=== PATIENT | male | born 1950 | race Caucasian/White ===

== ENCOUNTER 2016-07-24 14:25 | Emergency (ER) | payer MEDICARE, OTHER ==
[~2016-07-24] VITALS: Ht 172.7 cm; Wt 86.4 kg
[~2016-07-24 14:25] MED LIST: ASPI325T6 PO; ASPIRIN 32325 MG/TAB PO; ASPIRIN 81M81 MG/TA2 PO; ASPIRIN E.C. 8181 MG PO; CORDARONE200 MG/TAB PO; COREG 3.123.125 MG/T PO; COREG 6.256.25 MG/TA PO; COUMADIN 22.5 MG/TAB PO; COUMADIN 3MG3 MG/TAB PO; DULCOLAX10 MG RC; ERYTHROMYCIN250 M2 PO; FOLIC ACID 11 MG/TA1 PO; HUMALOG100 U/ML SC; IMODIUM 2MG CAPS2 MG PO; LEVAQUIN 5500 MG/TA1 PO; LIPITOR20 MG PO; LOPRESSOR 225 MG/TAB PO; MILK OF MAGNESI30 ML PO; MYLANTA 150 ML150 M1 PO; NEPHROCAP PO; NITROSTAT0.4 MG/TAB SL; NO HOME MEDICATIONS; NORVASC 5MG5 MG/TAB PO; PHOS LO PO; PHOSLO667 MG PO; PLAVIX 75MG TAB75 MG PO; PRILOSEC 20MG20 MG PO; PRINIVIL2.5 MG PO; PROTONIX 40MG T40 MG PO; REGLAN 5MG T5 MG/TAB PO; SANTYL OINT15 GM TP; TAZTIA PO; TIAZAC360 MG PO; TYLENOL 325MG325 MG PO; VITAMIN C500 MG PO; ZANTAC 150MG T150 MG PO; ZESTRIL 5MG5 MG PO; ZESTRIL2.5 MG PO; ZOLOFT 50MG50 MG PO
[2016-07-24 14:26] VITALS: TEMP 97.7
[2016-07-24 16:26] VITALS: BP 149/56; PULSE 65
== END 2016-07-24 16:38 | disposition home or self-care (01) ==
LOC: COL.ER 14:25
DX: S20.212A Contusion of left front wall of thorax, initial encounter (principal); S09.90XA Unspecified injury of head, initial encounter; W01.198A Fall on same level from slipping, tripping and stumbling with subsequent striking against other object, initial encounter; Y92.481 Parking lot as the place of occurrence of the external cause; E11.22 Type 2 diabetes mellitus with diabetic chronic kidney disease; N18.6 End stage renal disease; Z99.2 Dependence on renal dialysis

== ENCOUNTER 2016-07-28 02:12 | Inpatient (IN) | payer MEDICARE ==
[~2016-07-28] VITALS: Ht 172.7 cm; Wt 87.2 kg
[2016-07-28 02:44] LABS: BASO # 0.1 (0.0-0.2); BASO % 0.9 % (0.0-2.0); EOS # 0.1 (0.0-0.7); EOS % 0.9 % (0-4.0); GRAN # 3.4 (1.4-6.5); HEMATOCRIT 37.1 % (42.0-52.0); LYMPH # 3.7 (1.2-3.4); LYMPH % 45.8 % (20.0-51.0); MEAN CELL VOLUME 88 fl (80.0-100.0); MEAN CORPUSCULAR HEMOGLOBIN 27 pg (27.0-31.0); MEAN CORPUSCULAR HGB CONC 31 g/dl (33.0-37.0); MEAN PLATELET VOLUME 11.1 fl (7.4-10.4); MONO # 0.8 (0.1-0.6); MONO % 10.2 % (1.7-9.3); PLATELET COUNT 126 K/mm3 (130-400); RED BLOOD COUNT 4.22 M/mm3 (4.20-5.60); REDCELL DISTRIBUTION WIDTH-CV 14.6 % (11.5-14.5)
[2016-07-28 02:47] LABS: HEMOGLOBIN 11.4 g/dl (13.5-18.0)
[2016-07-28 02:56] LABS: ADJUSTED CALCIUM 8.8 mg/dL (8.4-10.2); ALBUMIN 3.9 gm/dL (3.5-5.0); BILIRUBIN,TOTAL 0.9 mg/dL (0.0-1.0); CALCIUM 8.7 mg/dL (8.4-10.2); MAGNESIUM 2.1 mg/dL (1.6-2.3); POTASSIUM 5.5 mmol/L (3.4-5.0)
[2016-07-28 02:59] LABS: PHOSPHOROUS 9.6 mg/dL (2.5-4.5)
[2016-07-28 03:01] LABS: CREATININE, serum 9.57 mg/dL (0.66-1.25)
[2016-07-28 03:08] LABS: TROPONIN-I 0.394 ng/mL (0.000-0.034)
[2016-07-28 04:32] VITALS: BP 134/52; PULSE 85; TEMP 97.9
[2016-07-28 07:59] VITALS: BP 113/47; PULSE 72; TEMP 98.7
[2016-07-28 12:45] VITALS: BP 133/62; PULSE 75; TEMP 98.4
[2016-07-28 16:37] VITALS: BP 122/67; PULSE 75; TEMP 97.3
[2016-07-28 19:28] VITALS: BP 117/54; PULSE 66; TEMP 97.4
[2016-07-29] VITALS (7 sets, daily range): BP systolic 98–117; BP diastolic 40–58; PULSE 64–103; TEMP 97.2–98.8
[2016-07-29 07:30] LABS: BASO # 0.1 (0.0-0.2); BASO % 1.2 % (0.0-2.0); EOS % 0.4 % (0-4.0); GRAN # 3.7 (1.4-6.5); GRAN % 54.4 % (42.2-75.2); HEMATOCRIT 38.1 % (42.0-52.0); LYMPH # 2.3 (1.2-3.4); LYMPH % 33.1 % (20.0-51.0); MEAN CELL VOLUME 90 fl (80.0-100.0); MEAN CORPUSCULAR HEMOGLOBIN 27 pg (27.0-31.0); MEAN CORPUSCULAR HGB CONC 30 g/dl (33.0-37.0); MONO # 0.7 (0.1-0.6); MONO % 10.5 % (1.7-9.3); PLATELET COUNT 114 K/mm3 (130-400); RED BLOOD COUNT 4.25 M/mm3 (4.20-5.60); WHITE BLOOD COUNT 6.9 K/mm3 (4.8-10.8)
[2016-07-29 07:37] LABS: HEMOGLOBIN 11.3 g/dl (13.5-18.0)
[2016-07-29 07:38] LABS: CALCIUM 8.9 mg/dL (8.4-10.2); POTASSIUM 4.5 mmol/L (3.4-5.0)
[2016-07-29 08:13] LABS: CREATININE, serum 6.9 mg/dL (0.66-1.25); TROPONIN-I 1.31 ng/mL (0.000-0.034)
[2016-07-30 04:00] VITALS: BP 96/45; PULSE 51; TEMP 97.4
[2016-07-30 07:37] LABS: BASO % 0.5 % (0.0-2.0); EOS % 0.1 % (0-4.0); GRAN # 3.8 (1.4-6.5); GRAN % 47.8 % (42.2-75.2); HEMATOCRIT 38.3 % (42.0-52.0); LYMPH # 3.2 (1.2-3.4); LYMPH % 39.9 % (20.0-51.0); MEAN CELL VOLUME 91 fl (80.0-100.0); MEAN CORPUSCULAR HEMOGLOBIN 27 pg (27.0-31.0); MEAN CORPUSCULAR HGB CONC 29 g/dl (33.0-37.0); MONO # 0.9 (0.1-0.6); MONO % 11.3 % (1.7-9.3); PLATELET COUNT 128 K/mm3 (130-400); RED BLOOD COUNT 4.21 M/mm3 (4.20-5.60); REDCELL DISTRIBUTION WIDTH-CV 15.2 % (11.5-14.5); WHITE BLOOD COUNT 7.9 K/mm3 (4.8-10.8)
[2016-07-30 07:44] LABS: HEMOGLOBIN 11.2 g/dl (13.5-18.0)
[2016-07-30 07:45] LABS: CALCIUM 8.9 mg/dL (8.4-10.2); POTASSIUM 5.7 mmol/L (3.4-5.0)
[2016-07-30 08:09] LABS: CREATININE, serum 8.57 mg/dL (0.66-1.25)
[2016-07-30 10:29] LABS: AMYLASE 56 U/L (30-110); LIPASE 21 U/L (23-300)
[2016-07-30 11:05] VITALS: BP 114/54; PULSE 70; TEMP 97.6
[2016-07-30 16:45] VITALS: BP 111/44; PULSE 67; TEMP 97.6
[2016-07-30 20:41] VITALS: BP 108/45; PULSE 65; TEMP 99.1
[2016-07-31 01:58] VITALS: BP 116/51; PULSE 67; TEMP 98.6
[2016-07-31 04:48] VITALS: BP 116/54; PULSE 69; TEMP 97.6
[2016-07-31 08:42] LABS: POTASSIUM 4.3 mmol/L (3.4-5.0)
[2016-07-31 08:52] LABS: BASO # 0.1 (0.0-0.2); BASO % 0.9 % (0.0-2.0); EOS % 0.4 % (0-4.0); GRAN # 2.7 (1.4-6.5); HEMATOCRIT 38.3 % (42.0-52.0); LYMPH # 3.1 (1.2-3.4); LYMPH % 45.5 % (20.0-51.0); MEAN CELL VOLUME 91 fl (80.0-100.0); MEAN CORPUSCULAR HEMOGLOBIN 26 pg (27.0-31.0); MEAN CORPUSCULAR HGB CONC 29 g/dl (33.0-37.0); MEAN PLATELET VOLUME 11.1 fl (7.4-10.4); MONO # 0.9 (0.1-0.6); MONO % 12.9 % (1.7-9.3); PLATELET COUNT 128 K/mm3 (130-400); RED BLOOD COUNT 4.22 M/mm3 (4.20-5.60); REDCELL DISTRIBUTION WIDTH-CV 15.3 % (11.5-14.5); WHITE BLOOD COUNT 6.8 K/mm3 (4.8-10.8)
[2016-07-31 09:03] LABS: HEMOGLOBIN 11.1 g/dl (13.5-18.0)
[2016-07-31 09:18] VITALS: BP 134/60; PULSE 69; TEMP 97.3
[2016-07-31 09:32] LABS: CREATININE, serum 6.22 mg/dL (0.66-1.25)
[2016-07-31 12:31] VITALS: BP 128/42; PULSE 64; TEMP 97.8
[2016-07-31 15:30] VITALS: BP 119/46; PULSE 61; TEMP 97.9
[2016-07-31 20:21] VITALS: BP 124/59; PULSE 67; TEMP 97.5
[2016-08-01 00:31] VITALS: BP 108/58; PULSE 59; TEMP 97.9
[2016-08-01 03:33] VITALS: BP 111/68; PULSE 98; TEMP 98.4
[2016-08-01 07:30] VITALS: BP 127/56; PULSE 60; TEMP 97.2
[2016-08-01 09:31] LABS: ADJUSTED CALCIUM 9.2 mg/dL (8.4-10.2); ALBUMIN 3.6 gm/dL (3.5-5.0); CALCIUM 8.9 mg/dL (8.4-10.2); TOTAL PROTEIN 7.8 gm/dL (6.4-8.2)
[2016-08-01 09:34] LABS: CREATININE, serum 7.37 mg/dL (0.66-1.25)
[2016-08-01 16:39] VITALS: BP 100/62; PULSE 83; TEMP 97.4
[2016-08-01 19:35] VITALS: BP 90/57; PULSE 84; TEMP 97.7
[2016-08-02 00:28] VITALS: BP 100/54; PULSE 97; TEMP 97.7
[2016-08-02 03:44] VITALS: BP 92/55; PULSE 100; TEMP 97.9
[2016-08-02 08:37] VITALS: BP 100/62; PULSE 98; TEMP 97.4
[2016-08-02] MEDS ORDERED: PLAVIX 75MG TAB75 MG PO (10:58)
[2016-08-02] MEDS ORDERED: CELEBREX400 MG PO (11:03)
[2016-08-02] MEDS ORDERED: ZOFRAN 4MG T4 MG/TAB PO (11:05)
[2016-08-02 11:59] VITALS: BP 95/55; PULSE 98; TEMP 97.7
[2016-08-04 11:44] LABS: ALBUMIN FRACTION 3.3 g/dL (2.6-4.5); ALPHA 1 FRACTION 0.5 g/dL (0.3-0.5); ALPHA 1 PERCENTAGE 6.4 % (3.4-8.3); ALPHA 2 FRACTION 0.6 g/dL (0.6-1.2); ALPHA 2 PERCENTAGE 8.9 % (8.4-17.5); BETA 1 FRACTION 0.2 g/dL (0.4-0.6); BETA 1 PERCENTAGE 3.2 % (5.4-8.9); BETA 2 FRACTION 0.3 g/dL (0.2-0.5); BETA 2 PERCENTAGE 3.7 % (3.8-7.7); GAMMA FRACTION 2.2 g/dL (0.4-1.7); GAMMA PERCENTAGE 30.8 % (8.1-23.0); SERUM PROTEIN TOTAL 7.1 g/dL (6.0-7.6)
[2016-08-04 14:31] LABS: KAPPA FREE LIGHT CHAIN-SERUM 24.9 mg/dL (()); KAPPA LAMBDA RATIO 16.9 (())
== END 2016-08-02 14:13 | disposition home or self-care (01) | DRG 280 ==
LOC: COL.ER 02:12 → MEDICAL 03:24
PROVIDERS: Emergency Medicine; Internal Medicine
PROC: 5A1D60Z (ICD-10-PCS; principal; 2016-07-28)
DX: I21.4 Non-ST elevation (NSTEMI) myocardial infarction (principal); I50.23 Acute on chronic systolic (congestive) heart failure; N18.6 End stage renal disease; I13.2 Hypertensive heart and chronic kidney disease with heart failure and with stage 5 chronic kidney disease, or end stage renal disease; C85.90 Non-Hodgkin lymphoma, unspecified, unspecified site; E11.22 Type 2 diabetes mellitus with diabetic chronic kidney disease; Z99.2 Dependence on renal dialysis; W18.30XA Fall on same level, unspecified, initial encounter; E11.42 Type 2 diabetes mellitus with diabetic polyneuropathy; D63.1 Anemia in chronic kidney disease; D47.2 Monoclonal gammopathy; I25.10 Atherosclerotic heart disease of native coronary artery without angina pectoris; Z95.1 Presence of aortocoronary bypass graft; Z87.891 Personal history of nicotine dependence; I48.91 Unspecified atrial fibrillation; N28.89 Other specified disorders of kidney and ureter
CPT/HCPCS: A9284; J1170; J1650; J2175; J2405

== ENCOUNTER 2016-08-12 13:36 | Inpatient (IN) | payer MEDICARE ==
[~2016-08-12] VITALS: Ht 172.7 cm; Wt 86.8 kg
[~2016-08-12 13:36] MED LIST changes: +CELEBREX400 MG PO; +ZOFRAN 4MG T4 MG/TAB PO
[2016-08-12] MEDS ORDERED: ULTRAM 50MG TAB50 MG PO (14:32)
[2016-08-12 14:44] VITALS: BP 111/40; PULSE 62; TEMP 97.2
[2016-08-12 16:41] LABS: BASO # 0.1 (0.0-0.2); BASO % 0.9 % (0.0-2.0); EOS % 0.3 % (0-4.0); GRAN # 3.8 (1.4-6.5); GRAN % 54.9 % (42.2-75.2); HEMATOCRIT 41.5 % (42.0-52.0); HEMOGLOBIN 12.3 g/dl (13.5-18.0); LYMPH # 2.2 (1.2-3.4); LYMPH % 31.1 % (20.0-51.0); MEAN CELL VOLUME 90 fl (80.0-100.0); MEAN CORPUSCULAR HEMOGLOBIN 27 pg (27.0-31.0); MEAN CORPUSCULAR HGB CONC 30 g/dl (33.0-37.0); MONO # 0.8 (0.1-0.6); MONO % 11.9 % (1.7-9.3); RED BLOOD COUNT 4.63 M/mm3 (4.20-5.60); REDCELL DISTRIBUTION WIDTH-CV 15.2 % (11.5-14.5)
[2016-08-12 16:59] LABS: PLATELET COUNT 79 K/mm3 (130-400)
[2016-08-12 17:27] LABS: ADJUSTED CALCIUM 9.6 mg/dL (8.4-10.2); ALBUMIN 3.6 gm/dL (3.5-5.0); BILIRUBIN,TOTAL 1.1 mg/dL (0.0-1.0); CALCIUM 9.3 mg/dL (8.4-10.2); POTASSIUM 4.3 mmol/L (3.4-5.0); TOTAL PROTEIN 7.6 gm/dL (6.4-8.2)
[2016-08-12 17:48] LABS: CREATININE, serum 5.17 mg/dL (0.66-1.25)
[2016-08-12 19:14] VITALS: BP 120/54; PULSE 60; TEMP 97.5
[2016-08-12 23:34] VITALS: BP 116/58; PULSE 63; TEMP 97.9
[2016-08-13 03:38] VITALS: BP 109/57; PULSE 53; TEMP 97.8
[2016-08-13 11:52] VITALS: BP 110/46; PULSE 60; TEMP 97.7
[2016-08-13 15:53] VITALS: BP 104/46; PULSE 60; TEMP 98.4
[2016-08-13 20:02] VITALS: BP 102/44; PULSE 62; TEMP 98.2
[2016-08-13 23:21] VITALS: BP 90/50; PULSE 51; TEMP 97.9
[2016-08-14 03:29] VITALS: BP 101/41; PULSE 58; TEMP 97.8
[2016-08-14 07:57] VITALS: BP 111/57; PULSE 57; TEMP 97.3
[2016-08-14] MEDS ORDERED: IBU600 MG PO (10:33)
[2016-08-14 11:05] VITALS: BP 113/46; PULSE 56; TEMP 97.9
== END 2016-08-14 12:27 | disposition home health service (06) | DRG 391 ==
LOC: COL.RAD 13:36 → MEDICAL 14:18
PROVIDERS: Internal Medicine Nephrology
PROC: 5A1D00Z (ICD-10-PCS; principal; 2016-08-12)
DX: R11.0 Nausea (principal); N18.6 End stage renal disease; I12.0 Hypertensive chronic kidney disease with stage 5 chronic kidney disease or end stage renal disease; C85.90 Non-Hodgkin lymphoma, unspecified, unspecified site; T40.4X5A Adverse effect of other synthetic narcotics, initial encounter; R53.1 Weakness; M25.552 Pain in left hip; R42 Dizziness and giddiness; E11.22 Type 2 diabetes mellitus with diabetic chronic kidney disease; I48.91 Unspecified atrial fibrillation; E11.40 Type 2 diabetes mellitus with diabetic neuropathy, unspecified; D63.1 Anemia in chronic kidney disease; D47.2 Monoclonal gammopathy; I25.2 Old myocardial infarction; Z79.4 Long term (current) use of insulin; Z95.1 Presence of aortocoronary bypass graft; Z87.891 Personal history of nicotine dependence; Z99.2 Dependence on renal dialysis
CPT/HCPCS: J2405; P9047; Q9967

== ENCOUNTER → 2016-08-28 | Outpatient (CLI) | payer MEDICARE, OTHER ==
[~2016-08-28] MED LIST changes: +IBU600 MG PO; +IMBRUVICA PO; +PREDNISONE20 MG PO; +ULTRAM 50MG TAB50 MG PO
== END ==
LOC: COL.RAD 11:41
DX: M84.454A Pathological fracture, pelvis, initial encounter for fracture (principal); M16.12 Unilateral primary osteoarthritis, left hip

== ENCOUNTER 2016-10-26 07:04 | Emergency (ER) | payer MEDICARE, OTHER ==
[~2016-10-26] VITALS: Ht 172.7 cm; Wt 86.4 kg
[~2016-10-26 07:04] MED LIST changes: -IMBRUVICA PO; -PREDNISONE20 MG PO
[2016-10-26] MEDS ORDERED: PREDNISONE20 MG PO (07:14)
[2016-10-26] MEDS ORDERED: IMBRUVICA PO (07:15)
[2016-10-26 07:21] VITALS: TEMP 102.3
[2016-10-26 10:08] LABS: BASO % 0.1 % (0.0-2.0); GRAN # 11.8 (1.4-6.5); HEMATOCRIT 32.8 % (42.0-52.0); HEMOGLOBIN 9.7 g/dl (13.5-18.0); LYMPH # 4.6 (1.2-3.4); LYMPH % 26.5 % (20.0-51.0); MEAN CELL VOLUME 92 fl (80.0-100.0); MEAN CORPUSCULAR HEMOGLOBIN 27 pg (27.0-31.0); MEAN CORPUSCULAR HGB CONC 30 g/dl (33.0-37.0); MEAN PLATELET VOLUME 12.9 fl (7.4-10.4); MONO # 0.9 (0.1-0.6); MONO % 5.1 % (1.7-9.3); PLATELET COUNT 114 K/mm3 (130-400); RED BLOOD COUNT 3.55 M/mm3 (4.20-5.60); REDCELL DISTRIBUTION WIDTH-CV 15.5 % (11.5-14.5); WHITE BLOOD COUNT 17.3 K/mm3 (4.8-10.8)
[2016-10-26 10:11] LABS: ADJUSTED CALCIUM 8.9 mg/dL (8.4-10.2); ALBUMIN 3.2 gm/dL (3.5-5.0); BILIRUBIN,TOTAL 1.5 mg/dL (0.0-1.0); CALCIUM 8.3 mg/dL (8.4-10.2); MAGNESIUM 1.9 mg/dL (1.6-2.3); PHOSPHOROUS 6.3 mg/dL (2.5-4.5); POTASSIUM 3.8 mmol/L (3.4-5.0)
[2016-10-26 10:17] LABS: CREATININE, serum 5.88 mg/dL (0.66-1.25)
[2016-10-26 11:42] VITALS: BP 84/22; PULSE 29
== END 2016-10-26 14:17 | disposition expired ==
LOC: COL.ER 07:04 → ICU 10:59 → COL.ER 10:59
PROVIDERS: Emergency Medicine
DX: A41.9 Sepsis, unspecified organism (principal); I46.9 Cardiac arrest, cause unspecified; I95.9 Hypotension, unspecified; R50.9 Fever, unspecified; R10.11 Right upper quadrant pain; R10.13 Epigastric pain; K92.0 Hematemesis; E11.22 Type 2 diabetes mellitus with diabetic chronic kidney disease; I12.0 Hypertensive chronic kidney disease with stage 5 chronic kidney disease or end stage renal disease; N18.6 End stage renal disease; Z79.4 Long term (current) use of insulin; E11.40 Type 2 diabetes mellitus with diabetic neuropathy, unspecified; I48.91 Unspecified atrial fibrillation; I25.10 Atherosclerotic heart disease of native coronary artery without angina pectoris; Z95.1 Presence of aortocoronary bypass graft; E86.9 Volume depletion, unspecified; D64.9 Anemia, unspecified; R00.1 Bradycardia, unspecified; D72.829 Elevated white blood cell count, unspecified; Z85.72 Personal history of non-Hodgkin lymphomas; Z85.6 Personal history of leukemia
CPT/HCPCS: C9113; J0171; J0461; J1170; J2310; J2405; J2543; J3370; J7030; J7040; J7050; Q9967